=== PATIENT | male | born 1960 | race Caucasian/White ===

== ENCOUNTER → 2019-03-29 | Outpatient (CLI) | payer BC ==
--- NOTE | 2019-03-29 16:21 | XR ---
Left finger HISTORY: Left index finger wound 2 views of the second digit of the left hand There is a needlelike density superimposed over the soft tissues at the level of the distal phalanx o f the third digit laterally as well as within the volar soft tissues of the second digit, these are e ach seen on only one view. No fracture or dislocation. 2 mm metallic density present at the volar asp ect of the wrist seen on one of the views. IMPRESSION: Possible foreign bodies.
== END | disposition home or self-care (01) ==
LOC: RADXRYALE 15:01
PROVIDERS: ATTEND Physician Assistant Medical
DX: S61.201A Unspecified open wound of left index finger without damage to nail, initial encounter (principal)

== ENCOUNTER 2024-04-25 08:57 | Emergency (ER) | payer BC, OTHER ==
--- NOTE | 2024-04-25 09:49 | ED ---
Extremity Problem HPI - General Chief complaint: Extremity Problem,Nontraumatic Stated complaint: R Thumb Injury Time Seen by Provider: 04/25/24 09:01 Source: patient, RN notes reviewed Mode of arrival: ambulatory Limitations: no limitations - History of Present Illness Initial comments: This is a 63-year-old male who presents to the emergency department for right thumb swelling. States that he noticed a lump on his right thumb that has been there for about a year, but seems to be getting worse over the last 6 months. Patient has not yet had this evaluated. This is only mildly painful. - Related Data Allergies Allergy/AdvReac Type Severity Reaction Status Date / Time No Known Allergies Allergy Verified 04/25/24 09:00 Review of Systems ROS Statement: Those systems with pertinent positive or pertinent negative responses have been documented in the HPI. ROS Other: All systems not noted in ROS Statement are negative. Past Medical History Past Medical History: No Reported History History of Any Multi-Drug Resistant Organisms: None Reported Past Surgical History: No Surgical Hx Reported Past Psychological History: No Psychological Hx Reported Smoking Status: Current every day smoker Past Alcohol Use History: None Reported Past Drug Use History: Marijuana General Exam Limitations: no limitations General appearance: alert, in no apparent distress Head exam: Present: atraumatic, normocephalic, normal inspection Respiratory exam: Present: normal lung sounds bilaterally. Absent: respiratory distress, wheezes, rales, rhonchi, stridor Cardiovascular Exam: Present: regular rate, normal rhythm, normal heart sounds. Absent: systolic murmur, diastolic murmur, rubs, gallop, clicks Extremities exam: Present: other (Mobile lump over the right thumb) Neurological exam: Present: alert, oriented X3, CN II-XII intact Psychiatric exam: Present: normal affect, normal mood Course Vital Signs 04/25/24 04/25/24 08:58 11:07 Temperature 97.6 F 97.9 F Pulse Rate 82 80 Respiratory 16 18 Rate Blood Pressure 153/75 146/76 O2 Sat by Pulse 100 99 Oximetry Medical Decision Making - Medical Decision Making This is a 63-year-old male who presents to the emergency department for a lump on his right thumb. Was pt. sent in by a medical professional or institution? @ -No Did you speak to anyone other than the patient for history? @ -No Did you review nursing and triage notes? @ -Yes, and I agree, it is accurate with regards to the patient's symptoms. Were old charts reviewed? @ -No Differential Diagnosis? @ -Differential thumb lump: Abscess, tumor, lipoma, scar tissue, this is not meant to be an all-inclusive list. EKG interpreted by me (3pts min.)? @ -Not obtained X-rays interpreted by me (1pt min.)? @ -X-ray of the right thumb obtained. My interpretation identifies no acute fractures. CT interpreted by me (1pt min.)? @ -Not obtained U/S interpreted by me (1pt. min.)? @ -Not obtained What testing was considered but not performed? (CT, X-rays, U/S, labs)? Why? @ -None What meds were considered but not given? Why? @ -None Did you discuss the management of the patient with other professionals? @ -No Did you reconcile home meds? @ -No Was smoking cessation discussed for >3mins.? @ -No Was critical care preformed (if so, how long)? @ -No Were there social determinants of health that impacted care today? How? (Homelessness, low income, unemployed, alcoholism, drug addiction, transportation, low edu. Level, literacy, decrease access to med. care, retirement, rehab)? @ -No Was there de-escalation of care discussed even if they declined? (Discuss DNR or withdrawal of care, Hospice)? @ -No What co-morbidities impacted this encounter? (DM, HTN, Smoking, COPD, CAD, Cancer, CVA, Hep., AIDS, mental health diagnosis, sleep apnea, morbid obesity)? @ -None Was patient admitted / discharged? @ -Discharged. X-ray of the right thumb obtained demonstrating prominent soft tissue protuberance from the dorsal aspect of the thumb with underlying arthritic changes. No acute osseous abnormality was identified. He appeared to have a very mobile soft tissue lump or tumor on exam. He inquired as to if this could be removed. Advised that given how long this has been there and because we are not sure what it is, he should have this removed by a specialist. He was given information for follow-up with orthopedic hand and discharged home in stable condition. Case discussed with ED attending Dr. Barron. Return precautions reviewed in depth, the patient is instructed to return to the emergency department with any new, worsening, or concerning symptoms. Patient verbalized understanding. Undiagnosed new problem with uncertain prognosis? @ -None Drug Therapy requiring intensive monitoring for toxicity (Heparin, Nitro, Insulin, Cardizem)? @ -None Were any procedures done? @ -None Diagnosis/symptom? @ -Subcutaneous mass of right thumb Acute, or Chronic, or Acute on Chronic? @ -Chronic Uncomplicated (without systemic symptoms) or Complicated (systemic symptoms)? @ -Uncomplicated Side effects of treatment? @ -None Exacerbation, Progression, or Severe Exacerbation] @ -Stable/mild progression Poses a threat to life or bodily function? @ -No - Radiology Data Radiology results: report reviewed, image reviewed Disposition Clinical Impression: Subcutaneous mass of right thumb Disposition: HOME SELF-CARE Additional Instructions: Return to the emergency department with any new, worsening, or concerning symptoms. Contact orthopedics as listed below for a follow-up appointment. Is patient prescribed a controlled substance at d/c from ED?: No Referrals: Josr Blanton DO [Primary Care Provider] - 1-2 days Pita Davis DO [Doctor of Osteopathic Medicine] - 1-2 days Time of Disposition: 11:02
--- NOTE | 2024-04-25 10:15 | XR ---
EXAMINATION TYPE: XR finger RT DATE OF EXAM: 04/25/2024 COMPARISON: NONE HISTORY: 63 year-old male right thumb lump and swelling TECHNIQUE: 3 views coned-down right thumb FINDINGS: Mild to moderate degenerative change first MCP joint. Mild atrophy first IP and first CMC j oint. There is prominent dorsal soft tissue protuberance overlying the MCP joint and proximal phalanx . No soft tissue calcifications are seen. IMPRESSION: Prominent soft tissue protuberance from the dorsal aspect of the thumb. 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 Correlate as to pos sible etiologies.
[2024-04-25 11:09] VITALS: BP 146/76; PULSE 80; RESP 18; TEMP 97.9
== END 2024-04-25 11:08 | disposition home or self-care (01) ==
LOC: EC 08:57
CPT/HCPCS: 99283

== ENCOUNTER 2025-02-07 22:40 | Observation (INO) | payer MEDICAID ==
--- NOTE | 2025-02-07 22:52 | ED ---
Syncope HPI - General Chief Complaint: Syncope Stated Complaint: Syncope Time Seen by Provider: 02/07/25 22:41 Source: patient, EMS, RN notes reviewed, old records reviewed Mode of arrival: EMS Limitations: no limitations - History of Present Illness Initial Comments: This is a 64 male to the ER for EMS with recurrent bouts of syncope. Multiple syncopal events in the last few days just prior to arrival with low blood pressures noted at home. Recent new blood pressure medication with recent history of severely elevated blood pressure. Patient feels weak does admit to decreased oral intake, no headache chest pain shortness of breath abdominal pain no recent fevers or other complaints MD Complaint: loss of consciousness, collapsed -: days(s) Prodromal Symptoms: lightheaded, palpitations Witnessed: no Injuries Sustained Associated with Event: None Current Symptoms: lightheaded History: previous syncopal episode Context: at rest - Related Data Home Medications Medication Instructions Recorded Confirmed Aspirin 81 mg PO DAILY 02/08/25 02/08/25 Atorvastatin [Lipitor] 40 mg PO DAILY 02/08/25 02/08/25 Previous Rx's Medication Instructions Recorded amLODIPine [Norvasc] 2.5 mg PO HS #90 tab 02/09/25 Allergies Allergy/AdvReac Type Severity Reaction Status Date / Time No Known Allergies Allergy Verified 02/08/25 07:09 Review of Systems ROS Statement: Those systems with pertinent positive or pertinent negative responses have been documented in the HPI. ROS Other: All systems not noted in ROS Statement are negative. Past Medical History Past Medical History: No Reported History History of Any Multi-Drug Resistant Organisms: None Reported Past Surgical History: No Surgical Hx Reported Past Psychological History: No Psychological Hx Reported Smoking Status: Current every day smoker Past Alcohol Use History: None Reported Past Drug Use History: Marijuana General Exam General appearance: alert, in no apparent distress Head exam: Present: atraumatic, normocephalic, normal inspection Eye exam: Present: normal appearance, PERRL, EOMI. Absent: scleral icterus, conjunctival injection, periorbital swelling ENT exam: Present: normal exam, mucous membranes moist Neck exam: Present: normal inspection. Absent: tenderness, meningismus, lymphadenopathy Respiratory exam: Present: normal lung sounds bilaterally. Absent: respiratory distress, wheezes, rales, rhonchi, stridor Cardiovascular Exam: Present: regular rate, normal rhythm, normal heart sounds. Absent: systolic murmur, diastolic murmur, rubs, gallop, clicks GI/Abdominal exam: Present: soft, normal bowel sounds. Absent: distended, tenderness, guarding, rebound, rigid Extremities exam: Present: normal inspection, full ROM, normal capillary refill. Absent: tenderness, pedal edema, joint swelling, calf tenderness Back exam: Present: normal inspection Neurological exam: Present: alert, oriented X3, CN II-XII intact Psychiatric exam: Present: normal affect, normal mood Skin exam: Present: warm, dry, intact, normal color. Absent: rash Course Vital Signs 02/07/25 02/08/25 02/08/25 22:46 00:20 02:00 Temperature 97.9 F Pulse Rate 62 74 75 Respiratory 17 18 17 Rate Blood Pressure 107/65 115/63 156/79 O2 Sat by Pulse 96 95 97 Oximetry 02/08/25 02/08/25 04:00 06:00 Temperature Pulse Rate 66 67 Respiratory 18 17 Rate Blood Pressure 117/60 118/69 O2 Sat by Pulse 95 97 Oximetry - Reevaluation(s) Reevaluation #1: 02/08/25 00:01 Medical records reviewed Reevaluation #2: 02/08/25 00:01 Patient has no recurrent syncope here in the ER Remains without complaint of headache chest pain or abdominal pain Reevaluation #3: 02/08/25 00:01 Patient informed of results and questions answered Reevaluation #4: Was pt. sent in by a medical professional or institution (, PA, [employer]ER, urgent care, hospital, or fdc...) When possible be specific @ -no Did you speak to anyone other than the patient for history (EMS, parent, family, police, friend...)? What history was obtained from this source @ -no Did you review nursing and triage notes (agree or disagree)? Why? @ -agree Are old charts reviewed (outside hosp., previous admission, EMS record, old EKG, old radiological studies, urgent care reports/EKG's, fdc records)? Report findings @ -yes Differential Diagnosis (chest pain, altered mental status, abdominal pain women, abdominal pain men, vaginal bleeding, weakness, fever, dyspnea, syncope, headache, dizziness, GI bleed, back pain, seizure, CVA, palpatations, mental health, musculoskeletal)? @ -prior EKG interpreted by me (3pts min.). @ -yes X-rays interpreted by me (1pt min.). @ -no CT interpreted by me (1pt min.). @ -yes negative for acute disease U/S interpreted by me (1pt. min.). @ -no What testing was considered but not performed or refused? (CT, X-rays, U/S, labs)? Why? @ -none What meds were considered but not given or refused? Why? @ -none Did you discuss the management of the patient with other professionals (professionals i.e. , PA, [employer] OFF[employer]ER, lab, RT, psych nurse, social security specialist, cant hooker, teacher, adult parole officer, case therapist)? Give summary @ -no Was smoking cessation discussed for >3mins.? @ -no Was critical care preformed (if so, how long)? @ -yes31 Were there social determinants of health that impacted care today? How? (Homelessness, low income, unemployed, alcoholism, drug addiction, transportation, low edu. Level, literacy, decrease access to med. care, skilled nursing, rehab)? @ -none Was there de-escalation of care discussed even if they declined (Discuss DNR or withdrawal of care, Hospice)? DNR status @ -no What co-morbidities impacted this encounter? (DM, HTN, Smoking, COPD, CAD, C ancer, CVA, ARF, Chemo, Hep., AIDS, mental health diagnosis, sleep apnea, morbid obesity)? @ -none Was patient admitted / discharged? Hospital course, mention meds given and route, prescriptions, significant lab abnormalities, going to OR and other pertinent info. @ - 64 male will be admitted for recurrent syncopal events, low blood pressure at home Admitted Undiagnosed new problem with uncertain prognosis? @ -no Drug Therapy requiring intensive monitoring for toxicity (Heparin, Nitro, Insuli n, Cardizem)? @ -no Were any procedures done? @ -no Diagnosis/symptom? @ -Syncope, hypotension Acute, or Chronic, or Acute on Chronic? @ -Acute Uncomplicated (without systemic symptoms) or Complicated (systemic symptoms)? @ -Complicated Side effects of treatment? @ -no Exacerbation, Progression, or Severe Exacerbation? @ -exacerbation Poses a threat to life or bodily function? How? (Chest pain, [place], [place], pneumonia, PE, COPD, DKA, ARF, appy, cholecystitis, CVA, Diverticulitis, Homicidal, [place] icidal, threat to staff... and all critical care pts) @ -yes with recurrent syncope Reevaluation #5: Differential Syncope: Valvular disease, hypertrophic cardiomyopathy, pulmonary embolism, tamponade, tachycardia, bradycardia, [place], hypovolemia, hemorrhage, dissection, anemia, intracranial hemorrhage, seizure, hypoglycemia, carbon monoxide poisoning, this is not meant to be an all-inclusive list. - Consultations Consultation #1: Spoke with [facility] who agrees to admit this patient EKG Findings - EKG Comments: EKG Findings:: EKG is sinus 70 PA 178 QRS 106 QTc 421 - EKG Results: EKG: interpreted by ANNE Medical Decision Making - Medical Decision Making 64 male will be admitted for recurrent syncopal events, low blood pressure at home - Lab Data Result diagrams: 02/09/25 03:56 02/09/25 03:56 Lab Results 02/07/25 02/07/25 02/07/25 Range/Units 22:57 22:57 22:57 WBC 13.47 H (4.50-10.00) 10*3/uL RBC 3.54 L (4.40-5.60) 10*6/uL Hgb 11.6 L (13.0-17.0) g/dL Hct 33.6 L (39.6-50.0) % MCV 94.9 (80.0-97.0) fL MCH 32.8 H (27.0-32.0) pg MCHC 34.5 (32.0-37.0) g/dL Plt Count 233 (140-440) 10*3/uL MPV 8.5 L (9.5-12.2) fL Immature Gran % (Auto) 0.4 % Neutrophils % 57.6 % Lymphocytes % 29.3 % Monocytes % 7.2 % Eosinophils % 4.8 % Basophils % 0.7 % Immature Gran # 0.06 H (0.00-0.04) 10*3/uL Neutrophils # 7.76 H (1.80-7.70) 10*3/uL Lymphocytes # 3.94 (0.90-5.00) 10*3/uL Monocytes # 0.97 (0.20-1.00) 10*3/uL Eosinophils # 0.64 H (0.04-0.35) 10*3/uL Basophils # 0.10 (0.00-0.10) 10*3/uL PT 10.5 (10.0-12.5) sec INR 0.9 (<1.2) APTT 21.6 L (22.0-30.0) sec Sodium 134 L (137-145) mmol/L Potassium 3.8 (3.5-5.1) mmol/L Chloride 105 (98-107) mmol/L Carbon Dioxide 20 L (22-30) mmol/L Anion Gap 9 mmol/L BUN 33 H (9-20) mg/dL Creatinine 1.53 H (0.66-1.25) mg/dL Est GFR (CKD-EPI)AfAm 56 (>60 ml/min/1.73 sqM) Est GFR (CKD-EPI)NonAf 48 (>60 ml/min/1.73 sqM) Glucose 108 H (74-99) mg/dL Plasma Lactic Acid Renny (0.7-2.0) mmol/L Calcium 8.7 (8.4-10.2) mg/dL Phosphorus 4.6 H (2.5-4.5) mg/dL Magnesium 2.1 (1.6-2.3) mg/dL Total Bilirubin 0.3 (0.2-1.3) mg/dL AST 22 (17-59) U/L ALT 16 (4-49) U/L Alkaline Phosphatase 67 (38-126) U/L Troponin I (0.000-0.034) ng/mL NT-Pro-B Natriuret Pep <20 pg/mL Total Protein 6.1 L (6.3-8.2) g/dL Albumin 3.9 (3.5-5.0) g/dL 02/07/25 02/07/25 Range/Units 22:57 22:57 WBC (4.50-10.00) 10*3/uL RBC (4.40-5.60) 10*6/uL Hgb (13.0-17.0) g/dL Hct (39.6-50.0) % MCV (80.0-97.0) fL MCH (27.0-32.0) pg MCHC (32.0-37.0) g/dL Plt Count (140-440) 10*3/uL MPV (9.5-12.2) fL Immature Gran % (Auto) % Neutrophils % % Lymphocytes % % Monocytes % % Eosinophils % % Basophils % % Immature Gran # (0.00-0.04) 10*3/uL Neutrophils # (1.80-7.70) 10*3/uL Lymphocytes # (0.90-5.00) 10*3/uL Monocytes # (0.20-1.00) 10*3/uL Eosinophils # (0.04-0.35) 10*3/uL Basophils # (0.00-0.10) 10*3/uL PT (10.0-12.5) sec INR (<1.2) APTT (22.0-30.0) sec Sodium (137-145) mmol/L Potassium (3.5-5.1) mmol/L Chloride (98-107) mmol/L Carbon Dioxide (22-30) mmol/L Anion Gap mmol/L BUN (9-20) mg/dL Creatinine (0.66-1.25) mg/dL Est GFR (CKD-EPI)AfAm (>60 ml/min/1.73 sqM) Est GFR (CKD-EPI)NonAf (>60 ml/min/1.73 sqM) Glucose (74-99) mg/dL Plasma Lactic Acid Renny 0.8 (0.7-2.0) mmol/L Calcium (8.4-10.2) mg/dL Phosphorus (2.5-4.5) mg/dL Magnesium (1.6-2.3) mg/dL Total Bilirubin (0.2-1.3) mg/dL AST (17-59) U/L ALT (4-49) U/L Alkaline Phosphatase (38-126) U/L Troponin I <0.012 (0.000-0.034) ng/mL NT-Pro-B Natriuret Pep pg/mL Total Protein (6.3-8.2) g/dL Albumin (3.5-5.0) g/dL Critical Care Time Critical Care Time: Yes Total Critical Care Time: 31 Disposition Clinical Impression: Syncope Disposition: ADMITTED IP TO THIS HOSP Condition: Stable Is patient prescribed a controlled substance at d/c from ED?: No Time of Disposition: :55
[2025-02-07] MEDS: SODIUM CHLORIDE 0.9% 1,000 ML IV ONE (23:03)
[2025-02-07 23:11] LABS: Basophils % (A) 0.7 %; Eosinophils # (A) 0.64 10*3/uL (0.04-0.35); Eosinophils % (A) 4.8 %; HCT 33.6 % (39.6-50.0); HGB 11.6 g/dL (13.0-17.0); Lymphocytes # (A) 3.94 10*3/uL (0.90-5.00); Lymphocytes % (A) 29.3 %; MCH 32.8 pg (27.0-32.0); MCHC 34.5 g/dL (32.0-37.0); MCV 94.9 fL (80.0-97.0); Mean Platelet Volume 8.5 fL (9.5-12.2); Monocytes # (A) 0.97 10*3/uL (0.20-1.00); Monocytes % (A) 7.2 %; Neutrophils # (A) 7.76 10*3/uL (1.80-7.70); Neutrophils % (A) 57.6 %; Platelet Count 233 10*3/uL (140-440); RBC 3.54 10*6/uL (4.40-5.60); RDW 13.2 % (11.5-14.5); WBC 13.47 10*3/uL (4.50-10.00)
[2025-02-07 23:35] LABS: ALT 16 U/L (4-49); AST 22 U/L (17-59); African American GFR (CKD) 56 (>60 ml/min/1.73 sqM); Albumin 3.9 g/dL (3.5-5.0); Alkaline Phosphatase 67 U/L (38-126); Anion Gap 9 mmol/L; Blood Urea Nitrogen 33 mg/dL (9-20); Calcium 8.7 mg/dL (8.4-10.2); Carbon Dioxide 20 mmol/L (22-30); Chloride 105 mmol/L (98-107); Glucose 108 mg/dL (74-99); Magnesium 2.1 mg/dL (1.6-2.3); Non-African American GFR(CKD) 48 (>60 ml/min/1.73 sqM); Phosphorus 4.6 mg/dL (2.5-4.5); Potassium 3.8 mmol/L (3.5-5.1); Sodium 134 mmol/L (137-145); Total Bilirubin 0.3 mg/dL (0.2-1.3); Total Protein 6.1 g/dL (6.3-8.2)
[2025-02-07 23:43] LABS: NT-Pro-B-Type Natriuretic Pept <20 pg/mL
[2025-02-07 23:44] LABS: INR 0.9 (<1.2); Partial Thromboplastin Time 21.6 sec (22.0-30.0); Prothrombin Time 10.5 sec (10.0-12.5)
[2025-02-08] MEDS ORDERED: ONDANSETRON 4 MG/2 ML VIAL IVP PRN (00:03)
[2025-02-08] MEDS ORDERED: NALOXONE 0.4 MG/ML 1 ML VIAL IV PRN (00:03)
[2025-02-08] MEDS: SODIUM CHLORIDE 0.9% 1,000 ML IV SCH ×2 (00:23→21:03)
--- NOTE | 2025-02-08 02:05 | CT ---
EXAM: CT Angiography Chest With Intravenous Contrast CLINICAL HISTORY: PE TECHNIQUE: Axial computed tomographic angiography images of the chest with intravenous contrast. Coronal and sagittal reconstructions are performed. CTDI is 6.8 mGy and DLP is 291.9 mGy-cm. This CT exam was performed using one or more of the following dose reduction techniques: automated exposure control, adjustment of the mA and/or kV according to patient size, and/or use of iterative reconstruction technique. MIP reconstructed images were created and reviewed. COMPARISON: No relevant prior studies available. FINDINGS: Pulmonary arteries: Unremarkable. No pulmonary embolism. Aorta: Moderate amount of atherosclerotic calcifications. No thoracic aortic aneurysm. Lungs: Small amount of peripheral atelectasis bilaterally. No mass. Pleural space: Unremarkable. No significant effusion. No pneumothorax. Heart: Unremarkable. No cardiomegaly. No significant pericardial effusion. No evidence of RV dysfunction. Bones/joints: Osteopenia suspected. Mild degenerative changes. Soft tissues: Unremarkable. Lymph nodes: Unremarkable. No enlarged lymph nodes. Kidneys and ureters: 3 cm posterior left renal cyst. IMPRESSION: No pulmonary embolism. No aortic aneurysm or dissection. 3 cm posterior left renal cyst. No follow-up needed
[2025-02-08 07:03] LABS: Appearance,Urine Clear (Clear); Bilirubin,Urine Negative (Negative); Blood,Urine Negative (Negative); Color,Urine Colorless; Glucose,Urine (UA) Negative (Negative); Ketones,Urine Negative (Negative); Leukocyte Esterase,Urine Negative (Negative); Nitrite,Urine Negative (Negative); Protein,Urine Negative (Negative); Specific Gravity,Urine 1.034 (1.001-1.035); Urobilinogen,Urine <2.0 mg/dL (<2.0)
[2025-02-08] MEDS: ATORVASTATIN 40 MG TAB PO SCH (10:23)
[2025-02-08] MEDS: ASPIRIN 81 MG PO SCH (10:23)
--- NOTE | 2025-02-08 10:45 | P.CRDCN ---
History of Present Illness History of present illness: HISTORY OF PRESENTING ILLNESS This is a pleasant 64-year-old male past medical history significant for hypertension, dyslipidemia and chronic nicotine dependence. 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 We have been asked to see in consultation for syncope. He states yesterday he was feeling persistently dizzy, diaphoretic and felt like he was going to pass out. He checked his blood pressure couple of times and it was consistently dropping as low as 80s systo lic. He then passed out and lost control of his bladder. No previous history of seizures. This has been going on for the previous 4 to 6 weeks. He established with a new primary care physician was having severely elevated blood pressures and started on a combination of lisinopril hydrochlorothiazide. He has been on varying doses over the previous 4 weeks due to these ongoing symptoms. He is currently wearing a heart monitor which was applied by his primary care physician. DIAGNOSTICS EKG reveals sinus rhythm with sinus arrhythmia heart rate of 70. Telemetry tracings indicate sinus mechanism with no acute arrhythmia or pauses. CTA is negative for pulmonary embolism or aortic aneurysm/dissection. Laboratory reviewed, WBC 13.4, hemoglobin 11.6, platelets 233, D-dimer 2.1, sodium 134, potassium 3.8, creatinine 1.53, cardiac enzymes negative x 3, TSH 0.6. Current cardiac medications include Lipitor 40 mg daily, aspirin 81 mg daily and lisinopril hydrochlorothiazide 20/12.5 mg daily. REVIEW OF SYSTEMS At the time of my exam: CONSTITUTIONAL: Denies fever or chills. CARDIOVASCULAR: Denies chest pain, shortness of breath, orthopnea, PND or palpitations. RESPIRATORY: Denies cough. GASTROINTESTINAL: Denies abdominal pain, diarrhea, constipation, nausea or vomiting. MUSCULOSKELETAL: Denies myalgias. NEUROLOGIC: Denies numbness, tingling, headache or weakness. ENDOCRINE: Denies fatigue, weight change, polydipsia or polyurina. GENITOURINARY: Denies burning, hematuria or urgency with micturation. HEMATOLOGIC: Denies history of anemia or bleeding. PHYSICAL EXAMINATION Blood pressure 118/69 heart rate 67 afebrile and maintaining oxygen saturation on room air. CONSTITUTIONAL: No apparent distress. HEENT: Head is normocephalic. Pupils are equal, round. Sclerae anicteric. Mucous membranes of the mouth are moist. No JVD. No carotid bruit. CHEST EXAMINATION: Lungs are clear to auscultation. No chest wall tenderness is noted on palpation or with deep breathing. HEART EXAMINATION: Regular rate and rhythm. S1, S2 heard. No murmurs, gallops or rub. ABDOMEN: Soft, nontender. EXTREMITIES: 2+ peripheral pulses, no lower extremity edema and no calf tenderness. NEUROLOGIC EXAMINATION: Patient is awake, alert and oriented x3. ASSESSMENT Syncope Acute kidney injury Leukocytosis Hypertension Dyslipidemia Chronic nicotine dependence PLAN An acute coronary event has been ruled out. Change antihypertensive to amlodipine 2.5 mg to be taken at bedtime with parameters to hold if systolic blood pressure is less than 110. Obtain 2D echocardiogram and Doppler study to assess cardiac structure and function. Continue to monitor on telemetry for another 24 hours. Thank you kindly for this consultation. Nurse Practitioner note has been reviewed, I agree with a documented findings and plan of care. Patient was seen and examined. Past Medical History Past Medical History: No Reported History History of Any Multi-Drug Resistant Organisms: None Reported Past Surgical History: No Surgical Hx Reported Past Psychological History: No Psychological Hx Reported Smoking Status: Current every day smoker Past Alcohol Use History: None Reported Past Drug Use History: Marijuana Medications and Allergies Home Medications Medication Instructions Recorded Confirmed Type Aspirin 81 mg PO DAILY 02/08/25 02/08/25 History Atorvastatin [Lipitor] 40 mg PO DAILY 02/08/25 02/08/25 History Lisinopril-Hctz 20-12.5 mg 1 tab PO DAILY 02/08/25 02/08/25 History [Zestoretic 20-12.5] Allergies Allergy/AdvReac Type Severity Reaction Status Date / Time No Known Allergies Allergy Verified 02/08/25 07:09 Physical Exam Vitals: Vital Signs Temp Pulse Resp BP Pulse Ox 02/08/25 06:00 67 17 118/69 97 02/08/25 04:00 66 18 117/60 95 02/08/25 02:00 75 17 156/79 97 02/08/25 00:20 74 18 115/63 95 02/07/25 22:46 97.9 F 62 17 107/65 96 Intake and Output 02/07/25 02/08/25 02/08/25 22:59 06:59 14:59 Other: Weight 68.039 kg 68.039 kg Results 02/07/25 22:57 02/07/25 22:57 Cardiac Enzymes 02/07/25 02/07/25 02/08/25 Range/Units 22:57 22:57 05:14 AST 22 (17-59) U/L Troponin I <0.012 <0.012 (0.000-0.034) ng/mL 02/08/25 Range/Units 08:31 AST (17-59) U/L Troponin I <0.012 (0.000-0.034) ng/mL Coagulation 02/07/25 Range/Units 22:57 PT 10.5 (10.0-12.5) sec APTT 21.6 L (22.0-30.0) sec CBC 02/07/25 Range/Units 22:57 WBC 13.47 H (4.50-10.00) 10*3/uL RBC 3.54 L (4.40-5.60) 10*6/uL Hgb 11.6 L (13.0-17.0) g/dL Hct 33.6 L (39.6-50.0) % Plt Count 233 (140-440) 10*3/uL Comprehensive Metabolic Panel 02/07/25 Range/Units 22:57 Sodium 134 L (137-145) mmol/L Potassium 3.8 (3.5-5.1) mmol/L Chloride 105 (98-107) mmol/L Carbon Dioxide 20 L (22-30) mmol/L BUN 33 H (9-20) mg/dL Creatinine 1.53 H (0.66-1.25) mg/dL Glucose 108 H (74-99) mg/dL Calcium 8.7 (8.4-10.2) mg/dL AST 22 (17-59) U/L ALT 16 (4-49) U/L Alkaline Phosphatase 67 (38-126) U/L Total Protein 6.1 L (6.3-8.2) g/dL Albumin 3.9 (3.5-5.0) g/dL Current Medications Generic Name Dose Route Start Last Admin Trade Name Freq PRN Reason Stop Dose Admin Amlodipine Besylate 2.5 mg 02/08/25 21:00 Amlodipine 2.5 Mg Tab PO HS ARIANNA Aspirin 81 mg 02/08/25 09:00 02/08/25 10:23 Aspirin 81 Mg PO 81 mg DAILY ARIANNA Administration Atorvastatin Calcium 40 mg 02/08/25 09:00 02/08/25 10:23 Atorvastatin 40 Mg Tab PO 40 mg DAILY ARIANNA Administration Naloxone HCl 0.2 mg 02/08/25 00:03 Naloxone 0.4 Mg/Ml 1 Ml Vial IV Q2M PRN Opioid Reversal Ondansetron HCl 4 mg 02/08/25 00:03 Ondansetron 4 Mg/2 Ml Vial IVP Q8HR PRN Nausea And Vomiting Intake and Output 02/07/25 02/08/25 02/08/25 22:59 06:59 14:59 Other: Weight 68.039 kg 68.039 kg Patient Weight 02/09/25 06:59 Weight 68.039 kg 02/07/25 22:57 02/07/25 22:57
--- NOTE | 2025-02-08 12:56 | P.CNNES ---
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 Patient and his son were present, who provided with a history. Patient was diagnosed with hypertension and hyperlipidemia in August 2024. He states his blood pressures were running around 200/100, therefore he was placed on Zestoretic 40 mg. He had a carotid Doppler performed which did not reveal any stenosis as per family members. It was performed at [facility] at office of Dr. Nia Beckford. Patient subsequently started having low blood pressure. He had a syncopal episode in November 2024, when he was working outside, felt dizzy, lightheaded. He had it inside the house, sat down in the chair, drink water but then he passed out half an hour later and his blood pressure was noted to be in 70s systolic by EMS. EMS was called, but he did not go to the hospital, as it was related to lower blood pressure. He saw his primary physician couple days later and the dose of Zestoretic was increased to 20 mg. He was also placed on an event monitor. Patient was doing well. Last night he was standing, moving around when he felt lightheaded. He sat down. He was sitting for an hour but he still passed out. Patient states that he started feeling lightheaded, vision got "funky", he drank some water but he still passed out. He woke up puking and noticed that he had peed on himself. Patient's son witnessed the event. He states that his eyes was blurred, he was struggling to breathe and he was just limp. There was no tonic stiffening or convulsion noted. No tongue bite. He did lose control of urine. As per EMS flowsheet when they arrived, patient was monitored by FD. Patient had 1 syncopal episode followed by 2-minute of altered mental status with vomiting. Patient is currently on a heart monitor through his PCP due to similar incident 1 week prior. Patient was alert and orient x 4 with GCS of 15. Patient states he felt his blood pressure was dropping prior to episode. Patient was sitting in a chair during incident. No seizure activity noted. Patient denied any chest pain shortness of breath or abdominal pain. Denied any dizziness or nausea. Vitals at the scene was blood pressure 88/45, pulse rate 64 respirations 16 saturation 97% blood sugar 152. Repeat blood pressure was 115/40. Then third one was 92/52. Vitals on arrival blood pressure 107/65, pulse is 62 temperature 97.9. Blood test shows WBC 13.47 hemoglobin 8.6, platelets are normal. INR is normal. PTT 21.6. D-dimer 2 point 0.6. Sodium 134 normal potassium, BUN 33 creatinine 1.53. Hepatic panel, troponins are normal. TSH normal. UA negative. EKG showed sinus rhythm with sinus arrhythmia. CT of the chest showed no pulmonary embolism. No aneurysm. Home medications include lisinopril/HCTZ, Lipitor 40 mg and aspirin 81 mg. Patient has history of smoking 1 pack/day for 50 years. He smokes marijuana occasionally. Denies any alcohol use. No drug use or diabetes. Patient also drinks about 2-3 pots of coffee per day. Lately he has cut back to drinking 1 pot per day. Patient has been seen by cardiology, who recommended a 2D echo. Review of Systems All pertinent positive and negative review of systems mentioned in the HPI, otherwise unremarkable. Past Medical History Past Medical History: No Reported History History of Any Multi-Drug Resistant Organisms: None Reported Past Surgical History: No Surgical Hx Reported Past Psychological History: No Psychological Hx Reported Smoking Status: Current every day smoker Past Alcohol Use History: None Reported Past Drug Use History: Marijuana Medications and Allergies Home Medications Medication Instructions Recorded Confirmed Type Aspirin 81 mg PO DAILY 02/08/25 02/08/25 History Atorvastatin [Lipitor] 40 mg PO DAILY 02/08/25 02/08/25 History Lisinopril-Hctz 20-12.5 mg 1 tab PO DAILY 02/08/25 02/08/25 History [Zestoretic 20-12.5] Allergies Allergy/AdvReac Type Severity Reaction Status Date / Time No Known Allergies Allergy Verified 02/08/25 07:09 Physical Examination - Vital Signs Vital Signs: Vital Signs Temp Pulse Resp BP Pulse Ox 02/08/25 06:00 67 17 118/69 97 02/08/25 04:00 66 18 117/60 95 02/08/25 02:00 75 17 156/79 97 02/08/25 00:20 74 18 115/63 95 02/07/25 22:46 97.9 F 62 17 107/65 96 Intake and Output 02/07/25 02/08/25 02/08/25 22:59 06:59 14:59 Other: Weight 68.039 kg 68.039 kg Patient is a late middle-aged male, very pleasant, in no acute distress. Patient is alert awake oriented to time place and person. Speech and language functions are normal. Patient can name and repeat very well. No aphasia or dysarthria. Attention, concentration and fund of knowledge is adequate. On cranial nerve examination, pupils are equal, round and reacting to light, visual villarreal are full on confrontation, with no neglect on double simultaneous stimulation. Extraocular muscles are intact with no nystagmus. Face is symmetric, tongue protrudes to the midline. Palatal elevation and sensation normal, hearing and shoulder shrug normal, facial sensation normal. On muscle strength testing, there is no pronator drift and the strength is normal in arms and legs distally and proximally. Deep tendon reflexes are symmetric 2+ all over and plantars downgoing. Sensory to touch is equal with no neglect on double simultaneous stimulation. Cerebellar function showed no ataxia for [id number] testing, although he is slightly tremulous bilaterally. No dysdiadochokinesia. No ataxia for [id number] testing on either side. Tone and bulk of muscles normal. Gait deferred.. On general examination, there is no carotid bruit or murmur, S1-S2 audible. Chest is clear on consultation. Abdomen is soft nontender. No organomegaly, bowel sounds present. Peripheral pulses are present. No peripheral edema. Results - Laboratory Findings CBC and BMP: 02/07/25 22:57 02/07/25 22:57 Abnormal Lab Findings: Abnormal Labs 02/07/25 02/07/25 02/07/25 22:57 22:57 22:57 WBC 13.47 H RBC 3.54 L Hgb 11.6 L Hct 33.6 L MCH 32.8 H MPV 8.5 L Immature Gran # 0.06 H Neutrophils # 7.76 H Eosinophils # 0.64 H APTT 21.6 L D-Dimer Sodium 134 L Carbon Dioxide 20 L BUN 33 H Creatinine 1.53 H Glucose 108 H Phosphorus 4.6 H Total Protein 6.1 L 02/08/ 00:05 WBC RBC Hgb Hct MCH MPV Immature Gran # Neutrophils # Eosinophils # APTT D-Dimer 2.16 H Sodium Carbon Dioxide BUN Creatinine Glucose Phosphorus Total Protein Assessment and Plan Assessment: * Syncopal spell x 2, likely due to hypotension/hypovolemia. Patient's blood pressure was 88/45 on the scene. The first syncopal spell that happened cou ple months ago also was associated with low systolic blood pressure in 70s. * Recent new onset hypertension * Hyperlipidemia * Tobacco use * Marijuana use * Excessive caffeine use. Plan: * Patient symptoms have resolved. * Patient's dose of blood pressure medication has been further reduced by cardiology. * Patient has event monitor already in place since last 1 week. Review of the recording should provide information about any possibility of arrhythmia. Cardiology on board. * Patient had a carotid Doppler performed at [facility] within last 6 weeks, and was reportedly normal. No need to repeat. * EEG has been completed, we will review the results. * 2D echo ordered, pending. * Check CT head, rule out any mass. * Recommend complete tobacco cessation. Abstain from marijuana. * Neurology will follow. Thank you for the consult. Addendum: EEG is normal awake and drowsy. No focal, lateralized or epileptiform activity was seen. CT head showed no acute intracranial process. Mild chronic appearing periventricular white matter ischemic type change. Neurologically clear, if cleared by cardiology.
--- NOTE | 2025-02-08 13:02 | P.HPIM ---
History of Present Illness H&P Date: 02/08/25 History of Presenting Illness: Patient is a very pleasant 64-year-old male with a past medical history of hypertension, hyperlipidemia, nicotine dependence, and cannabinoid use. He presented to the emergency department secondary to reports of recurrent syncopal episodes at home. Patient reports he was started on antihypertensive medication approximately 3 months ago and had an episode of syncope in which he had a reported very low blood pressure prior to event but also states during syncope h e had positive loss of bowel and bladder. Patient reports he discussed this with his PCP and antihypertensive medication dose was reduced in half and he was placed on an event monitor. Patient reports yesterday he was again not quite feeling right like his blood pressure was low so he sat down in the chair to take his blood pressure and stated it was dropping down low into the 80s and shortly after he again felt the dizziness and diaphoresis and feeling as though he was going to pass out and he lost consciousness. Patient reports during this event he also had involuntary loss of control of his bladder. He denies biting his tongue or hitting his head. Stated that he slumped over in the chair and was found by his . Patient currently admits to generalized fatigue/weakness but currently denies any other complaints including headache, lightheadedness numbness, chest pain, palpitations, shortness of breath, cough or congestion, abdominal pain, nausea, vomiting, or experiencing any numbness/tingling/weakness/swelling in his extremities. He reports he recently just started following with a primary care doctor because his blood pressures were extremely elevated over 200 systolic and this is when he started taking the antihypertensive medication lisinopril/hydrochlorothiazide. He denies following a tread builder or neurologist and denies any history of seizure disorder or alco hol use/abuse. To our facility, patient underwent evaluation in the emergency department. Vital signs upon arrival show blood pressure 107/65, heart rate 62, respiratory rate 17, temp 97.9 F, and SpO2 of 96% on room air. EKG was completed showing sinus mechanism at 70 bpm with no noted T wave or ST abnormality showing no signs of acute ischemia upon personal review and interpretation. Labs completed and reviewed. CBC showing leukocytosis with WBC count of 13.47, hemoglobin of 11.6. BMP showing sodium 134, bicarb of 20, blood glucose was 108. Lactic acid was 0.8. Calcium 8.7. Magnesium 2.1. Liver profile unremarkable. Troponin was negative at less than 0.012 with proBNP less than 20. Coagulation profile showing a low PTT of 21.6 and an elevated D-dimer of 2.16. CTA chest was completed negative for pulmonary emboli showing moderate amount of atherosclerotic calcifications reported throughout aorta a 3 cm posterior left renal cyst with no radiologic recommendations for follow-up imaging. Patient was admitted under our services with consultation to cardiology. Troponins trended resulting at less than 0.012 x 3 draws. We were notified of admission this morning. Review of systems: Pertinent positives and negatives as discussed in HPI, a complete review of systems was performed and all other systems are negative. Physical exam: Vital signs reviewed and stable. General: Nontoxic, no distress and appears stated age. Derm: Skin warm and dry, normal coloration for ethnicity. Head: Atraumatic, normocephalic and symmetric. Eyes: EOM's intact, no lid lag, and anicteric sclera Mouth: no lip lesions, mucus membranes moist Cardiovascular: regular rate and rhythm with normal S1S2, no murmur, positive posterior tibial pulses bilaterally, and cap refill < 2 seconds. Lungs: Respirations even, regular, and unlabored on room air. Lungs CTA bilaterally, no rhonchi, no rales, no wheezing, and no accessory muscle usage. Abdominal: soft, nontender to palpation, no guarding, no appreciable organomegaly Ext: ROM intact. No gross muscle atrophy, no edema, no contractures Neuro: Speech clear, face symmetrical and CN II-XII grossly intact with no noted focal neuro deficits Psych: Alert and oriented to person, place, time, and situation. Appropriate and pleasant affect. Assessment and Plan of Care: Recurrent syncopal episodes, unclear etiology rule out seizure vs cardiogenic vs vasovagal episodes from reported hypotension vs GI bleed with noted decrease in Hgb Normocytic anemia -Order placed for EEG -Neurochecks every 4 hours and fall precautions placed. -Obtain orthostatic vitals -Obtain event monitor report -Patient to remain on continuous telemetry monitoring. -Neurology consulted, appreciate recommendations. -Cardiology consulted, appreciate recommendations. -CT brain without contrast. -Blood pressure currently 118/69 with heart rate of 67 will hold antihypertensive medication lisinopril/hydrochlorothiazide at this time pending further recommendations from cardiology. -Hemoglobin 11.6, only previous hemoglobin available for review obtained per records resulted at 14.8 on 08/31/2024. Patient denies having black tarry stools, rectal bleeding, or any other reports of blood loss. -Will continue to monitor with repeat morning CBC, if further decrease in hemoglobin level, additional orders may need to be placed at that time for further investigation. Acute kidney injury Hyponatremia -Renal function currently showing BUN of 33, creatinine 1.53, GFR 48 with baseline creatinine of 0.9. -Hold lisinopril/hydrochlorothiazide and patient placed on gentle IV fluid hydration with 0.9% normal saline at 100 cc/h. -Will follow-up with repeat morning labs and monitor for improvement/resolution. Hypertension with reported episodes of recurrent hypotension -Blood pressure currently stable at 118/69, will hold lisinopril/hydrochlorothiazide at this time and continue to monitor blood pressures closely. Hyperlipidemia -Continue atorvastatin 40 mg daily. Nicotine dependence Recommend smoking cessation. Order placed for nicotine patch 21 mg daily. Data and imaging reviewed: As stated above in HPI. The patient is admitted with an anticipated less than 2 midnight stay for evaluation of recurrent syncopal episodes CODE STATUS: Full code DVT prophylaxis: CHANTELLE rai and JAYLEENs Anticipated discharge date: Pending clinical course Anticipated discharge place: Home Patient was seen independently by Nurse Practitioner. This document was prepared using [employer] dictation software. 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 Shekhar Wooten NP rendered care for this patient independently, reviewed the findings and plan as documented in the note above and agree with plan. I did not physically speak with or examine the patient on this date. Past Medical History Past Medical History: No Reported History History of Any Multi-Drug Resistant Organisms: None Reported Past Surgical History: No Surgical Hx Reported Past Psychological History: No Psychological Hx Reported Smoking Status: Current every day smoker Past Alcohol Use History: None Reported Past Drug Use History: Marijuana Medications and Allergies Home Medications Medication Instructions Recorded Confirmed Type Aspirin 81 mg PO DAILY 02/08/25 02/08/25 History Atorvastatin [Lipitor] 40 mg PO DAILY 02/08/25 02/08/25 History Lisinopril-Hctz 20-12.5 mg 1 tab PO DAILY 02/08/25 02/08/25 History [Zestoretic 20-12.5] Allergies Allergy/AdvReac Type Severity Reaction Status Date / Time No Known Allergies Allergy Verified 02/08/25 07:09 Physical Exam Vitals: Vital Signs Temp Pulse Resp BP Pulse Ox 02/08/25 06:00 67 17 118/69 97 02/08/25 04:00 66 18 117/60 95 02/08/25 02:00 75 17 156/79 97 02/08/25 00:20 74 18 115/63 95 02/07/25 22:46 97.9 F 62 17 107/65 96 Intake and Output 02/07/25 02/08/25 02/08/25 22:59 06:59 14:59 Other: Weight 68.039 kg Results CBC & Chem 7: 02/07/25 22:57 02/07/25 22:57 Labs: Abnormal Lab Results - Last 24 Hours (Table) 02/07/25 02/07/25 02/07/25 Range/Units 22:57 22:57 22:57 WBC 13.47 H (4.50-10.00) 10*3/uL RBC 3.54 L (4.40-5.60) 10*6/uL Hgb 11.6 L (13.0-17.0) g/dL Hct 33.6 L (39.6-50.0) % MCH 32.8 H (27.0-32.0) pg MPV 8.5 L (9.5-12.2) fL Immature Gran # 0.06 H (0.00-0.04) 10*3/uL Neutrophils # 7.76 H (1.80-7.70) 10*3/uL Eosinophils # 0.64 H (0.04-0.35) 10*3/uL APTT 21.6 L (22.0-30.0) sec D-Dimer (<0.60) mg/L FEU Sodium 134 L (137-145) mmol/L Carbon Dioxide 20 L (22-30) mmol/L BUN 33 H (9-20) mg/dL Creatinine 1.53 H (0.66-1.25) mg/dL Glucose 108 H (74-99) mg/dL Phosphorus 4.6 H (2.5-4.5) mg/dL Total Protein 6.1 L (6.3-8.2) g/dL 02/08/25 Range/Units 00:05 WBC (4.50-10.00) 10*3/uL RBC (4.40-5.60) 10*6/uL Hgb (13.0-17.0) g/dL Hct (39.6-50.0) % MCH (27.0-32.0) pg MPV (9.5-12.2) fL Immature Gran # (0.00-0.04) 10*3/uL Neutrophils # (1.80-7.70) 10*3/uL Eosinophils # (0.04-0.35) 10*3/uL APTT (22.0-30.0) sec D-Dimer 2.16 H (<0.60) mg/L FEU Sodium (137-145) mmol/L Carbon Dioxide (22-30) mmol/L BUN (9-20) mg/dL Creatinine (0.66-1.25) mg/dL Glucose (74-99) mg/dL Phosphorus (2.5-4.5) mg/dL Total Protein (6.3-8.2) g/dL
--- NOTE | 2025-02-08 14:21 | CT ---
EXAMINATION TYPE: CT brain wo con DATE OF EXAM: 02/08/2025 2:09 PM COMPARISON: None. CLINICAL INDICATION: Male, 64 years old with history of recurrent LOC, possible new onset seizures, r ecurrent loc TECHNIQUE: CT of the brain is performed utilizing 3 mm thick sections through the posterior fossa and 3 mm thick sections through the remaining calvarium. Study is performed within 24 hours of arrival to the hospital. Contrast used: mL of , (none if empty) CT DLP: 1141.1 mGycm, Automated exposure control for dose reduction was used. FINDINGS: No abnormal hyperdensity is present to suggest an acute intracranial hemorrhage. No mass lesion is evident. No acute infarcts are evident. Periventricular white matter hypodensities present, likely on the basi s of chronic white matter ischemic changes. Temporal lobes appear symmetrical Ventricles and sulci are appropriate for the patient age. Paranasal sinuses and mastoid air cells within the [id number] are clear. IMPRESSION: 1. No acute intracranial process. Follow up MRI can be performed as clinically indicated. 2. Mild chronic appearing periventricular white matter ischemic type changes [facility], , 02/08/2025 2:19 PM
--- NOTE | 2025-02-08 16:54 | EEG ---
Date of Service: 02/08/25 ELECTROENCEPHALOGRAM REPORT PREAMBLE: This is a 64-year-old male with a syncopal spell with loss of bowel and bladder control. This study is performed to rule out any epileptiform activity. EEG FINDINGS: This is a 21-channel digital EEG recorded with video component, utilizing 10/20 international system with referential and bipolar montages. Background consists of well developed, well regulated, low to medium voltage activity in 11 hertz alpha. Background is posterior dominant and reactive to eye opening and closing. Photic driving response was not seen. Drowsiness was seen with appearance of bilaterally symmetric theta frequency rhythm. Deeper stages of sleep were not seen. No focal or generalized epileptiform activity was seen. EKG channel showed no obvious arrhythmia. Hyperventilation was not done. IMPRESSION: This is a normal awake and drowsy EEG. No focal, lateralized or epileptiform activity was seen. MMODL / IJN: [id number] / MTDD
[2025-02-08] MEDS: PANTOPRAZOLE 40 MG TABLET PO SCH (17:03)
[2025-02-08] MEDS ORDERED: lisinopriL 5 MG TAB PO SCH (19:00)
[2025-02-08] MEDS: NICOTINE 21MG/24HR PATCH TRANSDERM SCH (21:02)
[2025-02-08] MEDS: amLODIPine 2.5 MG TAB PO SCH (22:05)
[2025-02-09 04:28] LABS: Basophils # (A) 0.11 10*3/uL (0.00-0.10); Eosinophils % (A) 9.4 %; HCT 32.2 % (39.6-50.0); HGB 11.1 g/dL (13.0-17.0); Lymphocytes # (A) 3.67 10*3/uL (0.90-5.00); Lymphocytes % (A) 34.5 %; MCH 32.8 pg (27.0-32.0); MCHC 34.5 g/dL (32.0-37.0); MCV 95.3 fL (80.0-97.0); Mean Platelet Volume 8.8 fL (9.5-12.2); Monocytes # (A) 0.87 10*3/uL (0.20-1.00); Monocytes % (A) 8.2 %; Neutrophils # (A) 4.99 10*3/uL (1.80-7.70); Neutrophils % (A) 46.8 %; Platelet Count 215 10*3/uL (140-440); RBC 3.38 10*6/uL (4.40-5.60); RDW 13.2 % (11.5-14.5); WBC 10.65 10*3/uL (4.50-10.00)
[2025-02-09 04:44] LABS: ALT 16 U/L (4-49); AST 20 U/L (17-59); African American GFR (CKD) >90 (>60 ml/min/1.73 sqM); Albumin 3.4 g/dL (3.5-5.0); Alkaline Phosphatase 70 U/L (38-126); Anion Gap 5 mmol/L; Blood Urea Nitrogen 17 mg/dL (9-20); Calcium 8.8 mg/dL (8.4-10.2); Carbon Dioxide 23 mmol/L (22-30); Chloride 109 mmol/L (98-107); Glucose 88 mg/dL (74-99); Magnesium 2.2 mg/dL (1.6-2.3); Non-African American GFR(CKD) >90 (>60 ml/min/1.73 sqM); Phosphorus 2.7 mg/dL (2.5-4.5); Potassium 4.4 mmol/L (3.5-5.1); Sodium 137 mmol/L (137-145); Total Bilirubin 0.3 mg/dL (0.2-1.3); Total Protein 5.5 g/dL (6.3-8.2)
[2025-02-09 10:09] VITALS: RESP 17; TEMP 97.7
--- NOTE | 2025-02-09 12:27 | CA ---
Transthoracic Echo Report Name: Jona Reynolds Age: 64 Gender: M : 1960 Exam Date: 02/09/2025 10:23 Exam Location: [facility] Ht (in): 67 Wt (lb): 150 Ordering Physician: Krystal Borjas Attending/Referring Phys: [id number], [place] [employer] Yves Seth RDCS Procedure CPT: Indications: Syncope Cardiac Hx: Technical Quality: Good Contrast 1: Total Dose (mL): Contrast 2: Total Dose (mL): MEASUREMENTS (Male / Female) Normal Values 2D ECHO LV Diastolic Diameter PLAX 5.3 cm 4.2 - 5.9 / 3.9 - 5.3 cm LV Systolic Diameter PLAX 3.7 cm IVS Diastolic Thickness 0.9 cm 0.6 - 1.0 / 0.6 - 0.9 cm LVPW Diastolic Thickness 0.9 cm 0.6 - 1.0 / 0.6 - 0.9 cm LV Relative Wall Thickness 0.3 RV Internal Dim ED PLAX 3.2 cm LVOT Diameter 2.0 cm LA Systolic Diameter LX 3.7 cm 3.0 - 4.0 / 2.7 - 3.8 cm LV Diastolic Volume MOD BP 131.0 cm??? 67 - 155 / 56 - 104 cm??? LV Systolic Volume MOD BP 51.8 cm??? 22 - 58 / 19 - 49 cm??? LV Ejection Fraction MOD BP 60.5 % >= 55 % LV Cardiac Index MOD BP 2733.1 cm???/min???m??? LV Diastolic Volume MOD 4C 111.8 cm??? LV Systolic Volume MOD 4C 37.5 cm??? LV Ejection Fraction MOD 4C 66.5 % LV Cardiac Index MOD 4C 2562.3 cm???/min???m??? LV Diastolic Length 4C 8.6 cm LV Systolic Length 4C 6.7 cm LV Diastolic Volume MOD 2C 140.0 cm??? LV Systolic Volume MOD 2C 61.9 cm??? LV Ejection Fraction MOD 2C 55.8 % LV Cardiac Index MOD 2C 2694.7 cm???/min???m??? LV Diastolic Length 2C 9.5 cm LV Systolic Length 2C 7.8 cm LA Volume 94.0 cm??? 18 - 58 / 22 - 52 cm??? LA Volume Index 52.2 cm???/m??? 16 - 28 cm???/m??? DOPPLER MV Area PHT 2.7 cm??? Mitral E Point Velocity 85.3 cm/s Mitral A Point Velocity 82.6 cm/s Mitral E to A Ratio 1.0 MV Deceleration Time 277.1 ms FINDINGS Left Ventricle Left ventricular ejection fraction is estimated at 66-60%. Normal left ventricular systolic function with no obvious regional wall motion abnormalities. Left ventricular cavity size normal. Left ventricular wall thickness normal. Right Ventricle Normal RV size and systolic function. Unable to estimate the right ventricular systolic pressure. Right Atrium Normal right atrial size. Left Atrium . Mildly increased left atrial area. Mitral Valve Mitral valve thickened. No mitral stenosis. Trace mitral regurgitation. Aortic Valve Trileaflet aortic valve. Thickened aortic valve without stenosis. No aortic regurgitation. Tricuspid Valve Structurally normal tricuspid valve. No tricuspid stenosis. Trace tricuspid regurgitation. Pulmonic Valve Structurally normal pulmonic valve. No pulmonic stenosis. No pulmonic regurgitation. Pericardium No pericardial effusion. Aorta Aortic annulus normal. CONCLUSIONS LVEF 60% No obvious regional wall motion abnormality Normal RV size and systolic function Mild left atrial dilatation No significant valvular dysfunction Previewed by: Dr Milton Sol (Electronically Signed) Final Date: 09 February 2025 12:26
[2025-02-09 13:14] VITALS: BP 135/69; PULSE 65
--- NOTE | 2025-02-09 13:56 | P.DS ---
Providers Date of admission: 02/08/25 00:03 Expected date of discharge: 02/09/25 Attending physician: Zoraida Cooper MD Consults: 02/08/25 09:57 Consult Physician Routine Consulting Provider: Shireen Alvarez Consult Reason/Comments: syncopal episodes with loss of bowel and bladder Do you want consulting provider notified?: Yes Primary care physician: Josr Blanton Hospital Course: Discharge Diagnosis: Recurrent syncope NATAN Hyponatremia Hypertension Dyslipidemia Anemia Leukocytosis Nicotine dependence Dyslipidemia Hospital Course: 64-year-old male with a past medical history of hypertension, hyperlipidemia, nicotine dependence, and cannabinoid use. He presented to the emergency department secondary to reports of recurrent syncopal episodes at home. Vital signs upon arrival show blood pressure 107/65, heart rate 62, respiratory rate 17, temp 97.9 F, and SpO2 of 96% on room air. EKG was completed showing sinus mechanism at 70 bpm with no noted T wave or ST abnormality showing no signs of acute ischemia upon personal review and interpretation. Labs completed and reviewed. CBC showing leukocytosis with WBC count of 13.47, hemoglobin of 11.6. BMP showing sodium 134, bicarb of 20, blood glucose was 108. Lactic acid was 0.8. Calcium 8.7. Magnesium 2.1. Liver profile unremarkable. Troponin was negative at less than 0.012 with proBNP less than 20. Coagulation profile showing a low PTT of 21.6 and an elevated D-dimer of 2.16. CTA chest was completed negative for pulmonary emboli showing moderate amount of atherosclerotic calcifications reported throughout aorta a 3 cm posterior left renal cyst with no radiologic recommendations for follow-up imaging. Patient was admitted under our services with consultation to cardiology. Troponins trended resulting at less than 0.012 x 3 draws. Neurology was consulted. EEG did not show any evidence of seizures. CT head did not show any acute process. Cardiology also consulted. Orthostatic vitals negative. Echocardiogram shows LVEF 60%. Patient being discharged home with close follow-up with cardiology. Event monitor placed at the time of discharge. Lisinopril and hydrochlorothiaz marlena changed to amlodipine. NATAN resolved. Patient seen and examined at bedside. Vital signs reviewed and stable. General: Nontoxic, no distress, appears at stated age Derm: Warm, dry Head: Atraumatic, normocephalic, symmetric Eyes: EOMI, no lid lag, anicteric sclera Mouth: No lip lesion, mucus membranes moist Cardiovascular: S1S2 reg, no murmur Lungs: CTA bilateral, no rhonchi, no rales, no accessory muscle use Abdominal: Soft, nontender to palpation, no guarding, no appreciable organomegaly Ext: No gross muscle atrophy, no edema, no contractures Neuro: CN II-XI grossly intact, no focal neuro deficits Psych: Alert, oriented, appropriate affect A total of 36 minutes of time were spent preparing this complex discharge summary. Patient was discharged on 02/09/2025 at 1327. Patient Condition at Discharge: Stable Plan - Discharge Summary Discharge Rx Participant: Yes New Discharge Prescriptions: New amLODIPine [Norvasc] 2.5 mg PO HS #90 tab Continue Atorvastatin [Lipitor] 40 mg PO DAILY Aspirin 81 mg PO DAILY Discontinued Lisinopril-Hctz 20-12.5 mg [Zestoretic 20-12.5] 1 tab PO DAILY Discharge Medication List Aspirin 81 mg PO DAILY 02/08/25 [History] Atorvastatin [Lipitor] 40 mg PO DAILY 02/08/25 [History] amLODIPine [Norvasc] 2.5 mg PO HS #90 tab 02/09/25 [Rx] Follow up Appointment(s)/Referral(s): Milton Sol MD [Medical Doctor] - 2 Weeks Josr Blanton DO [Primary Care Provider] - 1-2 days Activity/Diet/Wound Care/Special Instructions: Follow up with PCP and cardiology. Discharge Disposition: HOME SELF-CARE
== END 2025-02-09 15:04 | disposition home or self-care (01) ==
LOC: EC 22:40 → 6NMEDSUR 02-08 00:03 → 1SOBS 02-08 05:20
PROVIDERS: ADMIT Internal Medicine; ATTEND Internal Medicine
DX: R55 Syncope and collapse (principal); R39.198 Other difficulties with micturition; N17.9 Acute kidney failure, unspecified; E87.1 Hypo-osmolality and hyponatremia; E86.1 Hypovolemia; I10 Essential (primary) hypertension; E78.5 Hyperlipidemia, unspecified; D64.9 Anemia, unspecified; D72.829 Elevated white blood cell count, unspecified; F17.210 Nicotine dependence, cigarettes, uncomplicated; I95.9 Hypotension, unspecified; R61 Generalized hyperhidrosis; Z79.82 Long term (current) use of aspirin; Z79.899 Other long term (current) drug therapy; Z72.89 Other problems related to lifestyle
CPT/HCPCS: 96360; 99285; 36415 ×2; 95816; 93005; 93306; 85379; 83880; 80053 ×2; 84443; 83605; 83735 ×2; 84100 ×2; 84484 ×2; 85025 ×2; 85610; 85730; 81003; 70450; 71275; G0378 ×3; S4990; Q9967